=== PATIENT | female | born 1945 | race Caucasian/White ===

== ENCOUNTER 2016-12-27 14:01 | Emergency (ER) | payer OTHER, MEDICAID ==
[~2016-12-27] VITALS: Ht 160 cm; Wt 80.0 kg
[~2016-12-27 14:01] MED LIST: ASPI81TA3 PO; HYDR12.58 PO; LOSA100T47 PO; MECL12.574 PO; METO25TA7 PO; NORC 5-325 PO; ONDA4TAB14 PO; ZOC10 PO; [UNRECOGNIZED DRUG - CODE] PO
[2016-12-27 14:07] VITALS: Ht 160 cm; Wt 80.0 kg
--- NOTE | 2016-12-27 14:57 | RADRPT ---
PROCEDURE: CT Brain without contrast. CLINICAL INDICATION: Pain, headache TECHNIQUE: Routine CT scan of the brain was performed on a high resolution multi detector scanner without intravenous contrast. One or more of the following dose reduction techniques were used: Auto mated exposure control; Adjustment of the mA and/or kV according to patient size; Use of iterative r econstruction technique. CTDI = 44 mGy. DLP = 720 mGy-cm. COMPARISON: CT brain 05/28/2016 FINDINGS: Hemorrhage: No evidence of intracranial hemorrhage. Acute ischemic changes: No evidence of acute ischemic changes. Mass effect/Midline shift: None. Parenchymal volume: Mild central parenchymal volume loss is evident. Ventricular system: Concordant with parenchymal volume. Chronic changes: Severe chronic-appearing microvascular ischemic changes of the supratentorial white matter. Extracranial soft tissues: 7 mm probable calcifications versus radiopaque foreign body seen in the l eft supraorbital region is unchanged. Calvarium: Chronic fracture of the right lamina papyracea is unchanged. No acute fractures. Paranasal sinuses: Visualized paranasal sinuses are clear. Mastoid air cells: Visualized mastoid air cells are clear. IMPRESSION: No acute intracranial abnormalities. Severe chronic-appearing microvascular ischemic changes of the supratentorial white matter, unchange d. RPTAT: AADD .Anil Olivares MD, MD Date Time Electronically viewed and signed by .Anil Olivares MD, MD on 12/27/2016 14:57 .B/
[2016-12-27] MEDS ORDERED: MECLIZINE 12.5 MG TAB PO ONE (15:00)
[2016-12-27] MEDS ORDERED: TRAM-40 PO (15:36)
[2016-12-27] MEDS ORDERED: CARV12.579 PO (15:36)
[2016-12-27] MEDS ORDERED: VALS1TAB82 PO (15:37)
[2016-12-27] MEDS ORDERED: ATOR20TA38 PO (15:37)
[2016-12-27] MEDS ORDERED: MECL-77 PO (15:37)
[2016-12-27] MEDS ORDERED: DIAZ-90 PO (17:06)
--- NOTE | 2016-12-27 17:09 | ERD ---
ER Documentation Chief Complaint Date/Time DATE: 12/27/16 TIME: 17:06 Chief Complaint dizziness x 3 days HPI This is 71-year-old female with a history of vertigo complains of an exacerbation. She says that she has had some off-and-on spinning sensation for the past 3 days. She says that if she turns her head it makes it worse if she lays still gets better. She says the spinning is very strong and sudden but has no vomiting. She says she has no visual or speech change no focal neurological complaints such as numbness or weakness. The patient is on meclizine and says it helps but it is not helping as much this time. No recent illness no ringing in the ears, no headache chest pain shortness of breath ROS All systems reviewed and are negative except as per history of present illness. Medications Home Meds Active Scripts Diazepam* (Valium*) 5 Mg Tablet, 5 MG PO Q8, #10 TAB Prov:WENDY HOBBS DO 12/27/16 Reported Medications Valsartan-Hydrochlorothiazide (Valsartan-HCTZ) 320-25 Mg Tablet, 1 TAB PO DAILY , #30 TAB 12/27/16 Atorvastatin Calcium* (Atorvastatin Calcium*) 20 Mg Tablet, 20 MG PO QHS, #30 TAB 12/27/16 Meclizine Hcl* (Meclizine Hcl*) 25 Mg Tablet, 25 MG PO Q8H Y for DIZZINESS, TAB 12/27/16 Carvedilol* (Carvedilol*) 12.5 Mg Tablet, 12.5 MG PO BID, #60 TAB 12/27/16 Tramadol Hcl* (Ultram*) 50 Mg Tablet, 50 MG PO BID Y for PAIN, TAB 12/27/16 Discontinued Reported Medications Aspirin (Aspirin) 81 Mg Chew, 81 MG PO DAILY 07/07/13 Hydrocodone Bit-Acetaminophen* ([place]*) 1 Tab Tab, 1 TAB PO Q4NARC Y 07/07/13 Hydrochlorothiazide* (Hydrochlorothiazide*) 12.5 Mg Tablet, 12.5 MG PO DAILY 07/06/13 Tramadol Hcl* (Tramadol* ER) 100 Mg Tbmp.24hr, 50 MG PO BID Y 07/06/13 Metoprolol Succinate* (Toprol XL*) 25 Mg Tab.sr.24h, 50 MG PO HS 07/06/13 Simvastatin (Simvastatin) 10 Mg Tablet, 10 MG PO pm 07/06/13 Losartan Potassium* (Cozaar*) 100 Mg Tablet, 100 MG PO DAILY 07/06/13 Discontinued Scripts Ondansetron (Ondansetron Odt) 4 Mg Tab.rapdis, 4 MG PO Q6H Y for NAUSEA AND/OR VOMITING, #10 TAB Prov:EDWARDO POTTER MD 05/28/16 Meclizine Hcl* (Antivert*) 12.5 Mg Tab, 25 MG PO Q6H Y for DIZZINESS, #20 TAB Prov:EDWARDO POTTER MD 05/28/16 Allergies Allergies: Coded Allergies: Penicillins (Verified Allergy, Mild, RASH, 12/27/16) PMhx/Soc History of Surgery: Yes (RIGHT SHOULDER SX,HERNIA REPAIR,HYSTERECTOMY, THYROIDECTOMY) Anesthesia Reaction: No Hx Neurological Disorder: Yes (cva) Hx Respiratory Disorders: No Hx Cardiac Disorders: Yes (HYPERTENSION, HX CVA,HIGH CHOLESTEROL) Hx Psychiatric Problems: No Hx Miscellaneous Medical Probl: No Hx Alcohol Use: Yes (EVERY 1-2 MONTHS) Hx Substance Use: No Hx Tobacco Use: No Smoking Status: Never smoker FmHx Family History: No coronary disease Physical Exam Vitals Vital Signs Date Time Temp Pulse Resp B/P Pulse Ox O2 Delivery O2 Flow Rate FiO2 12/27/16 16:10 67 18 170/79 98 Room Air 12/27/16 14:07 98.1 60 18 132/90 99 Physical Exam Const: Well-developed, well-nourished Head: Atraumatic, normocephalic Eyes: Normal Conjunctiva, PERRLA, EOMI, normal sclera, no nystagmus ENT: Normal External Ears, Nose and Mouth, moist mucus membranes. Neck: Full range of motion. No meningismus, no lymphadenopathy. Resp: Clear to auscultation bilaterally, no wheezing, rhonchi, rales Cardio: Regular rate and rhythm, no murmurs, S1 S2 present Abd: Soft, non tender x 4, non distended. Normal bowel sounds, no guarding or rebound, no pulsitile abdominal masses or bruits Skin: No petechiae or rashes, no ecchymosis , no maculopapular rash Back: No midline or flank tenderness Ext: No cyanosis, or edema, FROM x 4, normal inspection, neurovascularly intact x 4 Neur: Awake and alert, STR 5/5 x 4, sensation intact x 4, no focal findings, cerebellum intact, positive Hallpike with head to the right Psych: Normal Mood and Affect Results 24 hrs Current Medications Medications (Trade) Dose Ordered Sig/Brigid Route PRN Reason Start Time Stop Time Status Last Admin Dose Admin Meclizine HCl (Antivert) 25 mg ONCE ONCE PO 12/27/16 15:00 12/27/16 15:01 DC 12/27/16 14:39 Procedures/MDM PROCEDURE: CT Brain without contrast. CLINICAL INDICATION: Pain, headache TECHNIQUE: Routine CT scan of the brain was performed on a high resolution multi detector scanner without intravenous contrast. One or more of the following dose reduction techniques were used: Automated exposure control; Adjustment of the mA and/or kV according to patient size; Use of iterative reconstruction technique. CTDI = 44 mGy. DLP = 720 mGy-cm. COMPARISON: CT brain 05/28/2016 FINDINGS: Hemorrhage: No evidence of intracranial hemorrhage. Acute ischemic changes: No evidence of acute ischemic changes. Mass effect/Midline shift: None. Parenchymal volume: Mild central parenchymal volume loss is evident. Ventricular system: Concordant with parenchymal volume. Chronic changes: Severe chronic-appearing microvascular ischemic changes of the supratentorial white matter. Extracranial soft tissues: 7 mm probable calcifications versus radiopaque foreign body seen in the left supraorbital region is unchanged. Calvarium: Chronic fracture of the right lamina papyracea is unchanged. No acute fractures. Paranasal sinuses: Visualized paranasal sinuses are clear. Mastoid air cells: Visualized mastoid air cells are clear. IMPRESSION: No acute intracranial abnormalities. Severe chronic-appearing microvascular ischemic changes of the supratentorial white matter, unchanged. RPTAT: AADD .Anil Olivares MD, Date Time Electronically viewed and signed by .Anil Olivares MD, on 12/27/2016 14:57 .B/ CC: WENDY HOBBS DO Patient was given Antivert and some time the patient says she is feeling much better. She is able to ambulate to the bathroom without difficulty. She has meclizine already no added Valium to the regimen to help. She will follow-up with her primary Departure Diagnosis: Primary Impression: Vertigo Condition: Stable Patient Instructions: Vertigo, Unspecified WENDY HOBBS DO Dec 27, 2016 17:09
[2016-12-27 17:30] VITALS: BP 170/78; PULSE 60; RESP 20; TEMP 98
== END 2016-12-27 17:30 | disposition home or self-care (01) ==
LOC: E/R 14:01
DX: R42 Dizziness and giddiness (principal); I10 Essential (primary) hypertension; Z79.82 Long term (current) use of aspirin
CPT/HCPCS: 70450